=== PATIENT | female | born 2000 | race Two or more races ===

== ENCOUNTER 2022-06-29 00:52 | Emergency (ER) | payer SELFPAY ==
[~2022-06-29] VITALS: Ht 152.4 cm; Wt 38.2 kg
[2022-06-29 01:26] LABS: COVID AG,FIA SOURCE NASAL SWAB
[2022-06-29 01:42] LABS: BASOPHILS % (AUTO) 0.2 % (0.0-2.0); EOSINOPHILS % (AUTO) 0.1 % (1.0-6.0); HEMATOCRIT 35.3 % (36-46); HEMOGLOBIN 11.2 g/dL (12.0-16.0); LYMPHOCYTES # (AUTO) 0.3 K/uL (1.0-4.8); LYMPHOCYTES % (AUTO) 1.7 % (22.0-44.0); MEAN CORPUSCULAR HEMOGLOBIN 25.9 pg (26.0-34.0); MEAN CORPUSCULAR HGB CONC 31.7 G/dL (31.0-37.0); MEAN CORPUSCULAR VOLUME 82 fL (80-100); MONOCYTES # (AUTO) 0.8 K/uL (0.1-1.0); MONOCYTES % (AUTO) 4.6 % (2.0-9.0); NEUTROPHILS # (AUTO) 17.5 K/uL (1.8-7.7); PLATELET COUNT (AUTO) 353 K/uL (150-450); RED BLOOD CELL COUNT(AUTO) 4.31 MIL/uL (4.00-5.20); RED CELL DISTRIBUTION WIDTH 19.4 % (11.5-14.5)
[2022-06-29 01:51] LABS: ANION GAP 11 mmol/L (8-16); CALCIUM, TOTAL 8.8 mg/dL (8.8-10.5); CARBON DIOXIDE 25 mmol/L (22-29); CHLORIDE 106 mmol/L (98-107); CREATININE 0.72 mg/dL (0.60-1.30); GLUCOSE,RANDOM 90 mg/dL (70-110); SODIUM SERUM 142 mmol/L (136-145); UREA NITROGEN, BLOOD 8 mg/dL (7-18)
[2022-06-29 01:57] LABS: ALANINE AMINOTRANSFERASE 15 U/L (12-78); ALBUMIN 4.3 g/dL (3.4-5.0); ALKALINE PHOSPHATASE 65 U/L (46-116); ASPARTATE AMINOTRANSFERASE 15 U/L (15-37); BILIRUBIN,TOTAL 0.4 mg/dL (0.1-1.0); TOTAL PROTEIN, SERUM 7.7 g/dL (6.4-8.2)
[2022-06-29 02:00] LABS: ACETAMINOPHEN < 2 mcg/mL (10-30); GLOMERULAR FILTR. RATE CALC > 60 mL/min (>60)
[2022-06-29 02:01] LABS: NEUTROPHILS % (AUTO) 93.4 % (40.0-70.0)
[2022-06-29 02:05] LABS: SALICYLATE 0.9 mg/dL (2.8-20.0)
[2022-06-29 02:39] LABS: INR 1.1 (0.9-1.1); PROTHROMBIN TIME 11.4 SEC (9.4-11.6)
[2022-06-29 03:26] LABS: APPEARANCE,URINE CLEAR (CLEAR); BILIRUBIN,URINE NEGATIVE (NEGATIVE); GLUCOSE, URINE (UA) NEGATIVE (NEGATIVE); KETONES,URINE NEGATIVE (NEGATIVE); LEUKOCYTE ESTERASE ,URINE NEGATIVE (NEGATIVE); NITRATE,URINE NEGATIVE (NEGATIVE); OCCULT BLOOD,URINE TRACE (NEGATIVE); PH,URINE 5.5 (5.0-8.0); PROTEIN,URINE NEGATIVE (NEGATIVE); SPECIFIC GRAVITIY, URINE 1.004 (1.003-1.030); UROBILINOGEN,URINE <=1.0 mg/dL (<=1.0)
[2022-06-29 03:40] LABS: AMPHET/METH SCREEN,URINE NEGATIVE (NEGATIVE); BARBITURATE SCREEN, URINE NEGATIVE (NEGATIVE); BENZODIAZEPINES SCREEN,URINE NEGATIVE (NEGATIVE); CANNABINOID SCREEN,URINE NEGATIVE (NEGATIVE); COCAINE SCREEN,URINE NEGATIVE (NEGATIVE); METHADONE SCREEN, URINE NEGATIVE (NEGATIVE); OPIATE SCREEN,URINE NEGATIVE (NEGATIVE); PHENCYCLIDINE SCREEN,URINE POSITIVE (NEGATIVE)
[2022-06-29 03:48] LABS: BACTERIA,URINE None Seen /HPF (None Seen); RBC,URINE 0-2 /HPF (0-2); SQUAMOUS EPITHELIAL CELL,UR Few /LPF (None Seen); WBC,URINE None Seen /HPF (0-5)
[2022-06-29 05:14] VITALS: BP 112/74
== END 2022-06-29 05:45 | disposition home or self-care (01) ==
LOC: EDBD 00:57 → EMS 00:57
DX: T65.91XA Toxic effect of unspecified substance, accidental (unintentional), initial encounter (principal); Z88.0 Allergy status to penicillin; Y92.89 Other specified places as the place of occurrence of the external cause; Z20.822 Contact with and (suspected) exposure to COVID-19
CPT/HCPCS: 99284; 87426; 80053; 85025; 85610; 85730; 36415; 93005; 81001; 80307 ×2; G0481; G0480

== ENCOUNTER 2023-09-25 23:45 | Inpatient (IN) | payer MEDICAID, OTHER ==
[~2023-09-25] VITALS: Ht 157.5 cm; Wt 44.0 kg
[2023-09-26] MEDS: DiphenhydrAMINE HCL 50 MG/ML VIAL IM ONE (00:42)
[2023-09-26] MEDS: LORazepam 2 MG/ML VIAL IM ONE (00:44)
[2023-09-26] MEDS: HALOPERIDOL LACTATE 5 MG/ML VIAL IM ONE (00:44)
[2023-09-26 01:12] LABS: BASOPHILS % (AUTO) 0.1 % (0.0-2.0); EOSINOPHILS % (AUTO) 3.2 % (1.0-6.0); HEMATOCRIT 37.4 % (36-46); HEMOGLOBIN 12.5 g/dL (12.0-16.0); LYMPHOCYTES # (AUTO) 1.4 K/uL (1.0-4.8); LYMPHOCYTES % (AUTO) 14.3 % (22.0-44.0); MEAN CORPUSCULAR HEMOGLOBIN 28.4 pg (26.0-34.0); MEAN CORPUSCULAR HGB CONC 33.4 G/dL (31.0-37.0); MEAN CORPUSCULAR VOLUME 85 fL (80-100); MONOCYTES # (AUTO) 0.9 K/uL (0.1-1.0); MONOCYTES % (AUTO) 8.4 % (2.0-9.0); NEUTROPHILS # (AUTO) 7.5 K/uL (1.8-7.7); PLATELET COUNT (AUTO) 389 K/uL (150-450); RED CELL DISTRIBUTION WIDTH 15.5 % (11.5-14.5); WHITE BLOOD COUNT (AUTO) 10.1 K/uL (4.5-11.0)
[2023-09-26 01:20] LABS: ANION GAP 9 mmol/L (8-16); CALCIUM, TOTAL 8.7 mg/dL (8.8-10.5); CARBON DIOXIDE 27 mmol/L (22-29); CHLORIDE 101 mmol/L (98-107); CREATININE 0.66 mg/dL (0.60-1.30); GLOMERULAR FILTR. RATE CALC > 60 mL/min (>60); GLUCOSE,RANDOM 108 mg/dL (70-110); POTASSIUM 3.9 mmol/L (3.5-5.1); SODIUM SERUM 137 mmol/L (136-145); UREA NITROGEN, BLOOD 8 mg/dL (7-18)
[2023-09-26 01:22] LABS: ALCOHOL, BLOOD (SERUM) < 3 mg/dL (0-10)
[2023-09-26 01:26] LABS: ALANINE AMINOTRANSFERASE 16 U/L (12-78); ALBUMIN 3.8 g/dL (3.4-5.0); ALKALINE PHOSPHATASE 110 U/L (46-116); ASPARTATE AMINOTRANSFERASE 16 U/L (15-37); BILIRUBIN,TOTAL 0.2 mg/dL (0.1-1.0)
[2023-09-26] MEDS ORDERED: ZOLPIDEM TARTRATE 10 MG TABLET PO PRN (01:30)
[2023-09-26] MEDS ORDERED: HALOPERIDOL 5 MG TABLET PO PRN (01:30)
[2023-09-26] MEDS ORDERED: LORazepam 2 MG TABLET PO PRN (01:30)
[2023-09-26 03:28] LABS: COVID AG,FIA SOURCE NASAL SWAB
[2023-09-26 03:41] LABS: SARS-COV2 (COVID) ANTIGEN,FIA Negative (Negative)
[2023-09-26] MEDS: SODIUM CHLORIDE 0.9% 1,000 ML IV ONE (04:10)
[2023-09-26 04:45] VITALS: BP 89/46; PULSE 114; RESP 16; TEMP 97.5; O2SAT 100
[2023-09-26 05:00] VITALS: BP 95/39; PULSE 118; RESP 16
[2023-09-26 05:15] VITALS: BP 67/29; RESP 16
[2023-09-26 05:30] VITALS: BP 75/35; RESP 16
[2023-09-26 05:40] VITALS: BP 71/32; RESP 16
[2023-09-26 05:41] LABS: GLUCOMETER DEV NAME(LOC) 3EX.2; GLUCOSE,POINT OF CARE 109 MG/DL (70-110)
[2023-09-26 06:46] VITALS: BP 83/31
== END 2023-09-26 06:20 | disposition short-term general hospital (02) | DRG 751 ==
LOC: EMS 23:46 → 3EI 09-26 01:30
PROVIDERS: ADMIT Psychiatry & Neurology Psychiatry; ATTEND Psychiatry & Neurology Psychiatry
DX: F23 Brief psychotic disorder (principal); F19.10 Other psychoactive substance abuse, uncomplicated; Z20.822 Contact with and (suspected) exposure to COVID-19; Z88.0 Allergy status to penicillin
CPT/HCPCS: 80053; 82962; 84703; 85025; 99285; G0480; J1200; J1630; J2060; J7030

== ENCOUNTER 2023-09-30 14:52 | Inpatient (IN) | payer MEDICAID ==
[~2023-09-30] VITALS: Ht 152.4 cm; Wt 52.6 kg
[2023-09-30 17:09] VITALS: BP 124/73; PULSE 122; RESP 18; TEMP 99.2
[2023-09-30] MEDS ORDERED: TraZODone HCL 50 MG TABLET PO PRN (18:30)
[2023-09-30] MEDS: LORazepam 1 MG TABLET PO PRN (19:04)
[2023-09-30 20:55] VITALS: BP 121/77; PULSE 64; RESP 18; TEMP 97.9; O2SAT 98
[2023-09-30 20:58] VITALS: BP 121/77; PULSE 64; RESP 18; TEMP 97.9
[2023-09-30] MEDS: RisperiDONE 1 MG TABLET PO SCH (21:00)
[2023-10-01] MEDS ORDERED: IBUPROFEN 400 MG TABLET PO PRN (06:30)
[2023-10-01] MEDS ORDERED: ONDANSETRON HCL 4 MG TABLET PO PRN (06:30)
[2023-10-01] MEDS ORDERED: DOCUSATE SODIUM 100 MG CAPSULE PO PRN (06:30)
[2023-10-01] MEDS ORDERED: MAG HYDROX/ALUMINUM HYD/SIMETH ES 30 ML SUSPENSION UDCUP PO PRN (06:30)
[2023-10-01] MEDS ORDERED: NICOTINE 14 MG/24 HOUR PATCH TD PRN (06:30)
[2023-10-01] MEDS ORDERED: LOPERAMIDE HCL 2 MG CAPSULE PO PRN (06:30)
[2023-10-01] MEDS ORDERED: ACETAMINOPHEN 325 MG TABLET PO PRN (06:30)
[2023-10-01] MEDS ORDERED: MAGNESIUM HYDROXIDE SUSPENSION 30 ML UDCUP PO PRN (06:30)
[2023-10-01] MEDS ORDERED: PETROLATUM,WHITE 28 GM JELLY TP PRN (06:30)
[2023-10-01] MEDS ORDERED: CloNIDine HCL 0.1 MG TABLET PO PRN (06:30)
[2023-10-01] MEDS ORDERED: GuaiFENesin/D-METHORPHAN [SUGAR-FREE] 200-20MG/10 ML SYRUP UDCUP PO PRN (06:30)
[2023-10-01] MEDS ORDERED: ALBUTEROL SULFATE HFA 90 MCG/PUFF 8 GM INHALER IH PRN (06:30)
[2023-10-01 06:58] LABS: BASOPHILS % (AUTO) 0.8 % (0.0-2.0); EOSINOPHILS % (AUTO) 7.6 % (1.0-6.0); HEMATOCRIT 34.9 % (36-46); HEMOGLOBIN 11.5 g/dL (12.0-16.0); LYMPHOCYTES # (AUTO) 2.2 K/uL (1.0-4.8); LYMPHOCYTES % (AUTO) 22.3 % (22.0-44.0); MEAN CORPUSCULAR HEMOGLOBIN 28.6 pg (26.0-34.0); MEAN CORPUSCULAR VOLUME 87 fL (80-100); MONOCYTES # (AUTO) 0.8 K/uL (0.1-1.0); MONOCYTES % (AUTO) 7.9 % (2.0-9.0); NEUTROPHILS % (AUTO) 61.4 % (40.0-70.0); PLATELET COUNT (AUTO) 297 K/uL (150-450); RED BLOOD CELL COUNT(AUTO) 4.02 MIL/uL (4.00-5.20); RED CELL DISTRIBUTION WIDTH 15.5 % (11.5-14.5); WHITE BLOOD COUNT (AUTO) 9.7 K/uL (4.5-11.0)
[2023-10-01 07:13] LABS: ALANINE AMINOTRANSFERASE 46 U/L (12-78); ALBUMIN 2.9 g/dL (3.4-5.0); ALKALINE PHOSPHATASE 91 U/L (46-116); ANION GAP 7 mmol/L (8-16); ASPARTATE AMINOTRANSFERASE 29 U/L (15-37); CALCIUM, TOTAL 8.3 mg/dL (8.8-10.5); CARBON DIOXIDE 27 mmol/L (22-29); CHLORIDE 103 mmol/L (98-107); CREATININE 0.55 mg/dL (0.60-1.30); GLOMERULAR FILTR. RATE CALC > 60 mL/min (>60); GLUCOSE,RANDOM 97 mg/dL (70-110); POTASSIUM 4.7 mmol/L (3.5-5.1); SODIUM SERUM 137 mmol/L (136-145); TOTAL PROTEIN, SERUM 6.2 g/dL (6.4-8.2); UREA NITROGEN, BLOOD 9 mg/dL (7-18)
[2023-10-01 07:15] LABS: BILIRUBIN,TOTAL 0.1 mg/dL (0.1-1.0)
[2023-10-01] MEDS: LEVOFLOXACIN 750 MG TABLET PO SCH (08:25)
[2023-10-01 08:30] VITALS: BP 111/61; PULSE 102; RESP 18; TEMP 98.9
[2023-10-01 09:49] VITALS: BP 111/61; PULSE 102; RESP 18; TEMP 98.9; O2SAT 98
[2023-10-01 21:31] VITALS: BP 123/76; PULSE 100; RESP 18; TEMP 98.7; O2SAT 98
[2023-10-01] MEDS: ZOLPIDEM TARTRATE 10 MG TABLET PO PRN (21:31)
[2023-10-01 22:49] VITALS: BP 118/80; PULSE 98; RESP 18; TEMP 98.6; O2SAT 99
[2023-10-02 08:59] LABS: HEMOGLOBIN A1C 5.7 % (3.8-5.6)
[2023-10-02 09:30] LABS: THYROID STIMULATING HORMONE 3.1 uIU/mL (0.36-3.74)
[2023-10-02 10:16] VITALS: BP 108/66; PULSE 81; RESP 18; TEMP 97.5; O2SAT 98
[2023-10-02 10:18] LABS: CHOL/HDL RATIO 3.5 (3.9-5.7)
[2023-10-02] MEDS: HALOPERIDOL 5 MG TABLET PO PRN (12:33)
[2023-10-02] MEDS ORDERED: RISP1TAB48 PO (14:48)
[2023-10-02] MEDS ORDERED: LEVO750T68 PO ×2 (19:10→19:38)
== END 2023-10-02 19:40 | disposition home or self-care (01) | DRG 750 ==
LOC: 3EI 16:15
PROVIDERS: ADMIT Psychiatry & Neurology Child & Adolescent Psychiatry; ATTEND Psychiatry & Neurology Psychiatry
PROC: GZHZZZZ Group Psychotherapy (ICD-10-PCS; principal; 2023-10-01)
DX: F20.9 Schizophrenia, unspecified (principal); F29 Unspecified psychosis not due to a substance or known physiological condition; L03.114 Cellulitis of left upper limb; Z88.0 Allergy status to penicillin; Z79.899 Other long term (current) drug therapy
CPT/HCPCS: 80053; 80061; 83036; 84443; 85025; Q9967; 36415-L1; 36415-TC; Z7610

== ENCOUNTER 2024-02-03 14:03 | Emergency (ER) | payer MEDICAID, OTHER ==
[~2024-02-03 14:03] MED LIST: LEVO750T68 PO; RISP1TAB48 PO
== END 2024-02-03 14:40 | disposition left against medical advice (07) ==
LOC: EMS 14:03
DX: F25.9 Schizoaffective disorder, unspecified (principal); F15.10 Other stimulant abuse, uncomplicated; Z59.00 Homelessness unspecified; Z86.59 Personal history of other mental and behavioral disorders; Z88.0 Allergy status to penicillin
CPT/HCPCS: 99283

== ENCOUNTER 2024-03-06 05:30 | Emergency (ER) | payer OTHER ==
[~2024-03-06] VITALS: Ht 154.9 cm; Wt 47.7 kg
[2024-03-06 05:34] VITALS: TEMP 97.5
[2024-03-06] MEDS: PERMETHRIN 1% 60 ML LOTION TP ONE (06:00)
[2024-03-06 07:42] LABS: BASOPHILS % (AUTO) 0.7 % (0.0-2.0); EOSINOPHILS % (AUTO) 0.8 % (1.0-6.0); HEMATOCRIT 43.2 % (36-46); HEMOGLOBIN 14.4 g/dL (12.0-16.0); LYMPHOCYTES # (AUTO) 1.2 K/uL (1.0-4.8); LYMPHOCYTES % (AUTO) 13.6 % (22.0-44.0); MEAN CORPUSCULAR HEMOGLOBIN 29.3 pg (26.0-34.0); MEAN CORPUSCULAR HGB CONC 33.2 G/dL (31.0-37.0); MEAN CORPUSCULAR VOLUME 88 fL (80-100); MONOCYTES # (AUTO) 0.5 K/uL (0.1-1.0); MONOCYTES % (AUTO) 5.6 % (2.0-9.0); NEUTROPHILS # (AUTO) 6.7 K/uL (1.8-7.7); NEUTROPHILS % (AUTO) 79.3 % (40.0-70.0); PLATELET COUNT (AUTO) 362 K/uL (150-450); RED BLOOD CELL COUNT(AUTO) 4.91 MIL/uL (4.00-5.20); RED CELL DISTRIBUTION WIDTH 16.6 % (11.5-14.5); WHITE BLOOD COUNT (AUTO) 8.5 K/uL (4.5-11.0)
[2024-03-06 07:52] LABS: ANION GAP 9 mmol/L (8-16); CALCIUM, TOTAL 9.2 mg/dL (8.8-10.5); CARBON DIOXIDE 26 mmol/L (22-29); CHLORIDE 99 mmol/L (98-107); CREATININE 0.63 mg/dL (0.60-1.30); GLOMERULAR FILTR. RATE CALC > 60 mL/min (>60); GLUCOSE,RANDOM 87 mg/dL (70-110); POTASSIUM 3.9 mmol/L (3.5-5.1); SODIUM SERUM 134 mmol/L (136-145); UREA NITROGEN, BLOOD 12 mg/dL (7-18)
[2024-03-06 07:58] LABS: ALCOHOL, BLOOD (SERUM) < 3 mg/dL (0-10)
[2024-03-06 08:09] LABS: COVID AG,FIA SOURCE NASAL SWAB
[2024-03-06 08:27] LABS: ALCOHOL, URINE DRUG SCREEN NEGATIVE (NEGATIVE); AMPHET/METH SCREEN,URINE POSITIVE (NEGATIVE); BARBITURATE SCREEN, URINE NEGATIVE (NEGATIVE); BENZODIAZEPINES SCREEN,URINE NEGATIVE (NEGATIVE); CANNABINOID SCREEN,URINE NEGATIVE (NEGATIVE); COCAINE SCREEN,URINE NEGATIVE (NEGATIVE); METHADONE SCREEN, URINE NEGATIVE (NEGATIVE); OPIATE SCREEN,URINE NEGATIVE (NEGATIVE); PHENCYCLIDINE SCREEN,URINE NEGATIVE (NEGATIVE)
[2024-03-06 08:28] LABS: SARS-COV2 (COVID) ANTIGEN,FIA Negative (Negative)
[2024-03-06 08:43] VITALS: BP 126/74; PULSE 72; RESP 16; O2SAT 98
== END 2024-03-06 09:30 | disposition home or self-care (01) ==
LOC: EMS 05:34
DX: F25.9 Schizoaffective disorder, unspecified (principal); F19.10 Other psychoactive substance abuse, uncomplicated; F15.90 Other stimulant use, unspecified, uncomplicated; Z88.0 Allergy status to penicillin; Z20.822 Contact with and (suspected) exposure to COVID-19
CPT/HCPCS: 99283; 87426; 80048; 85025; 36415; 80307; G0480